=== PATIENT | male | born 1960 | race Caucasian/White ===

== ENCOUNTER 2022-07-08 19:39 | Emergency (ER) | payer OTHER, SELFPAY ==
--- NOTE | ~2022-07-08 | XR_ITS ---
EXAMINATION: XR FINGER, LEFT CLINICAL INFORMATION: Middle finger deformity COMPARISON: None TECHNIQUE: Three views of the left middle finger. FINDINGS: There is posterior dislocation of the third PIP joint. Tiny ossification along the volar aspect of the NAFISA joint near the distal aspect of the third proximal phalanx likely represents a tiny avulsion fracture component, best appreciated on the lateral view. XR/XR finger LT min 2V IMPRESSION: Posterior dislocation of the third PIP joint space with a suggestion of a tiny volar fracture fragment
--- NOTE | ~2022-07-08 | XR_ITS ---
EXAMINATION: XR HAND, LEFT CLINICAL INFORMATION: Postreduction COMPARISON: Prereduction images TECHNIQUE: PA, lateral, and oblique views of the left hand. FINDINGS: The third PIP joint has been relocated. Again there is a tiny ossification seen along the volar aspect of the PIP joint likely representing a tiny avulsion injury. No other acute bony abnormality. XR/XR hand LT min 3V IMPRESSION: Relocated third PIP joint with tiny volar avulsion fracture
[2022-07-08 20:09] VITALS: BP 139/81; PULSE 104; RESP 16; TEMP 36.2; O2SAT 99; BMI 21.5
--- NOTE | 2022-07-08 22:20 | ED_ITS ---
HPI - Extremity Problem General Chief complaint: Extremity Injury, Upper Stated complaint: Finger injury Time Seen by Provider: 07/08/22 22:16 Source: patient Mode of arrival: ambulatory Limitations: no limitations History of Present Illness HPI Narrative: 61-year-old male presents to the emergency department with complaints of left 3rd finger pain status post tripping and falling on to his left hand, patient tells me he stubbed his finger on the way down and noted that he had an evident deformity to the finger. He tells me is unable to move that finger. However he can feel it. He tells me this happened just prior to his arrival. Patient did not hit his head, lose consciousness when he fell. No other injury sustained during fall. Patient not on blood thinners. Denies numbness or tingling. Related Data Allergies Allergy/AdvReac Type Severity Reaction Status Date / Time No Known Allergies Allergy Unverified 07/01/20 15:34 [No Known Allergies*] Review of Systems Review of Systems: Constitutional : No Weight loss, No Fever, No Chills, No Fatigue, No Malaise ENT/Mouth : No sore throat, No Rhinorrhea Eyes: No Eye Pain, No Swelling, No Redness Cardiovascular : No Chest Pain, No SOB, No Dyspnea on Exertion, No Orthopnea, No Edema, No Palpitations Respiratory : No Cough, No Sputum, No Wheezing Gastrointestinal : No Nausea, No Vomiting, No Diarrhea, No Constipation, No abdominal Pain, No Hematochezia, No Melena Genitourinary : No Dysuria, No Urinary Frequency, No Hematuria, Musculoskeletal : + joint pain, No Myalgias, No Joint Swelling Skin : No Skin Lesions, No rash Neuro : No Weakness, No Numbness, No Dizziness, No Headache All other systems reviewed and are negative Yes all other systems are reviewed and are negative [facility] Past Medical History Attestation statement: The following information was validated with the patient. Source: old records reviewed and nursing notes reviewed Social History Social History Advance Directives: No Advance Directives Information Provided: No Physical Exam Vital Signs: Vital Signs: Last Vital Signs Temp 97.2 F 07/08/22 20:09 Pulse 104 H 07/08/22 20:09 Resp 16 07/08/22 20:09 BP 139/81 07/08/22 20:09 Pulse Ox 99 07/08/22 20:09 O2 Del Method 07/08/22 20:09 BMI result Body Mass Index 21.5 vss Appearance: Alert.? Oriented X3.? No acute distress.? Head: Normocephalic, atraumatic, no step-offs or deformities Eyes: Pupils equal, round and reactive to light.? ENT: Pharynx normal.? Neck: Normal inspection.? Neck supple.? CVS: Normal heart rate and rhythm.? Pulses normal.? Respiratory: No respiratory distress.? Breath sounds normal.? Abdomen: Soft and nontender.? Skin: Skin warm and dry.? Normal skin color.? Normal skin turgor.? Extremities: No lower extremity edema.? No calf ttp. 5/5 strength to bilateral upper and lower extremities deformity to L. third digit (image below) NV intact normal sensation to all fingers and capillary refill intact b/l. Neuro: Oriented X 3.? No motor deficit.? No sensory deficit. CN 2-12 intact Course Reevaluation(s) Reevaluation #1: Imaging with evident dislocation. Traction and counter traction applied to successfully place joint back in place. Patient tolerated procedure well, post procedure neurovascularly intact, patient able to wiggle finger, full range of motion. Will obtain post reduction films. Patient's finger will be placed in a splint to ensure that it remains in place. Time: 22:24 Reevaluation #2: Post reduction film with improvement. Remains neurovascularly intact. Patient tells me he does not aware splint, educated him it could pop back out. I will provide him with information for Ortho, advised to return with new or worsening symptoms. Outlined on worrisome signs and symptoms. Comfortable discharge home. Time: 22:48 MDM - Extremity (Nontraumatic) MDM Narrative Medical decision making narrative: 1023 This is a 61-year-old male presenting for evaluation of left 3rd digit pain stat us post falling and stabbing his finger on the ground. No head strike, no LOC, patient not on blood thinners. On exam evident deformity noted, images in chart. However, neurovascularly intact. Concerns for fracture dislocation. Patient did not have a head strike, therefore had imaging not required, patient not on blood thinners. [place] head score negative therefore no need for imaging. Plan at this time is to obtain imaging. Medical Records Attestation: I reviewed the patient's medical records. Lab Data Attestation: I reviewed the patient's lab results. Discharge Plan Discharge Clinical Impression: Dislocated finger, Finger fracture Patient Disposition: Home, Self-Care Instructions: Finger Fracture (ED), Finger Dislocation (ED) Additional Instructions: Take your medications as prescribed. If you were prescribed antibiotics today, it is important that you take your medication to their entirety, do not skip any doses, do not finish them early. Follow-up with your primary care provider this week. Follow up with ortho info below Return to the emergency department with new or worsening symptoms. Such as fevers, chills, chest pain, shortness of breath, nausea, vomiting, dizziness, headache, vision changes, lethargy, worsening pain, discoloration/numbness of finger. In case of emergency call 911 Keep splint on until tomorrow. You can take ibuprofen every 6 hours tylenol every 4 hours. XR/XR finger LT min 2V IMPRESSION: Posterior dislocation of the third PIP joint space with a suggestion of a tiny volar fracture fragment ? Referrals: Physician,None [Primary Care Provider] - 2 days Malka Powers MD [Physician] - 3 days Stand Alone Forms: Work/School Release
== END 2022-07-08 22:56 | disposition home or self-care (01) ==
PROVIDERS: Emergency Provider Student in an Organized Health Care Education/Training Program
DX: S62.613A Displaced fracture of proximal phalanx of left middle finger, initial encounter for closed fracture (principal); W01.198A Fall on same level from slipping, tripping and stumbling with subsequent striking against other object, initial encounter; Y93.9 Activity, unspecified; Y92.9 Unspecified place or not applicable; Y99.9 Unspecified external cause status
CPT/HCPCS: 26742; 73130; 73140; 99282; 99284

== ENCOUNTER 2023-12-04 05:48 | Inpatient (IN) | payer OTHER, SELFPAY ==
[2023-12-04] VITALS (10 sets, daily range): BP systolic 124–148; BP diastolic 65–74; PULSE 110–133; RESP 16–32; TEMP 36.6–37.4; O2SAT 84–97; BMI 19.2
--- NOTE | ~2023-12-04 | CT_ITS ---
EXAMINATION: CT ANGIOGRAM OF THE CHEST WITH AND WITHOUT CONTRAST (CT PULMONARY ANGIOGRAM FOR PE) CLINICAL INFORMATION: Reason for Exam hypoxia, tachycardia, +dimer COMPARISON: None available. TECHNIQUE: Prior to contrast administration, noncontrast localization images were obtained. Subsequently, multidetector volumetric imaging was performed from the thoracic inlet to below the diaphragms following the administration of 80 mL Omnipaque 350 intravenous contrast. No contrast reaction reported Sagittal, coronal, and MIP oblique sagittal reformatted images were obtained on the CT workstation, uploaded to PACS, and reviewed. This CT examination was performed using dose optimization techniques as appropriate, variously including the following: *Automated exposure control *Adjustment of mA and/or kV according to patient size (this includes techniques or standardized protocols for targeted exams where dose is matched to indication/reason for exam; i.e. extremities or head) *Use of iterative reconstruction technique Total exam dose-length product 200 mGy-cm FINDINGS: QUALITY OF STUDY/CONTRAST BOLUS: Satisfactory. PULMONARY ARTERIES: No pulmonary emboli. THORACIC AORTA: No aneurysm. LUNG: There is mild centrilobular emphysema. There are ill-defined patchy groundglass 4-5 mm nodular densities in in both upper lobes and both lower lobes. No large consolidation, mass seen. Mild atelectatic changes seen in both lower lobes. PLEURA: No pleural effusion or pneumothorax. MEDIASTINUM: The thyroid lobes are symmetric and normal. The central trachea and the bronchi widely patent. Heart size and the great vessels are normal caliber. No pericardial effusion seen. No abnormal size mediastinal or hilar lymph nodes. No evidence of septal bowing or right heart strain. CORONARY ARTERY CALCIFICATION: Mild coronary artery calcifications are present. CHEST WALL/AXILLA: No axillary or internal mammary lymphadenopathy. OSSEOUS STRUCTURES: No aggressive lytic or sclerotic process seen. UPPER ABDOMEN: Visualized liver, spleen, pancreas and bilateral adrenal glands are unremarkable. No reflux of contrast into the hepatic veins to suggest elevated right heart pressures. CT/CT angio chest PE protocol IMPRESSION: No evidence of PE. No evidence aortic aneurysm or dissection. Multiple ill-defined groundglass nodular densities in both upper and lower lobes. Question inflammatory or infectious etiology. Recommend follow-up chest x-ray in 7-10 days following course of antibiotics. VTE: negative
--- NOTE | ~2023-12-04 | XR_ITS ---
EXAMINATION: XR CHEST CLINICAL INFORMATION: Shortness of breath and cough. COMPARISON: None available. TECHNIQUE: Frontal view of the chest was obtained. FINDINGS: The cardiomediastinal silhouette is normal. The lung araujo are hyperinflated. There is no definitive focal consolidation or evidence for significant pleural effusions. The bony structures and soft tissues are unremarkable. XR/XR chest 1V IMPRESSION: Hyperinflated lung araujo. No definitive focal consolidation or evidence for significant pleural effusions.
--- NOTE | 2023-12-04 05:59 | ECG_ITS ---
Test Reason : SOB Blood Pressure : / mmHG Vent. Rate : 123 BPM Atrial Rate : 123 BPM P-R Int : 136 ms QRS Dur : 082 ms QT Int : 302 ms P-R-T Axes : 083 063 079 degrees QTc Int : 432 ms Sinus tachycardia Otherwise normal ECG No previous ECGs available Referred By: Generic ED Physician Electronically Signed By:JEFFERSON SORTO MD
[2023-12-04 06:32] LABS: Hematocrit 44.9 % (42.0-52.0); Hemoglobin 15.1 g/dl (14.0-18.0); Mean Corpuscular HGB Conc 33.6 g/dl (31.0-36.0); Mean Corpuscular Hemoglobin 31.5 pg (27.0-33.0); Mean Corpuscular Volume 93.7 fL (80.0-98.0); Mean Platelet Volume 8.4 fL (9.4-12.4); Platelet Count 288 X10*3/uL (160-400); Red Blood Count 4.79 X10*6/uL (4.60-5.80); Red Cell Distribution Width 12.8 % (11.0-16.0); White Blood Count 11.5 X10*3/uL (4.8-10.8)
[2023-12-04 06:41] LABS: COVID-19 Test Negative (Negative); IDNOW Serial# 152EDE1D
[2023-12-04 06:44] LABS: Alanine Aminotransferase 7 U/L (0-40); Albumin Level 3.8 g/dL (3.5-5.0); Alkaline Phosphatase 79 U/L (39-117); Anion Gap 13 (12-20); Aspartate Amino Transferase 14 U/L (5-37); Bilirubin Total 0.7 mg/dL (0.0-1.0); Blood Urea Nitrogen 6 mg/dL (9-16); Calcium 9.1 mg/dL (8.4-10.2); Carbon Dioxide 29 mmol/L (22-29); Chloride 93 mmol/L (96-108); Creatinine Clr Calc Pharmacy 84.1; Estimated Glomerular Filt Rate > 60; Glucose Random 127 mg/dL (60-115); IDNOW Serial# 08D9AD1C; Influenza A Negative (Negative); Influenza B2 Negative (Negative); Potassium 3.8 mmol/L (3.3-5.1); Sodium 131 mmol/L (135-145); Total Protein 7.3 g/dL (6.5-8.0)
[2023-12-04 06:51] LABS: Troponin-I High Sensitivity < 2.7 ng/L (<3.5-35.0)
[2023-12-04 06:52] LABS: Band Neutrophils Percent 5 % (3-5); Lymphocytes Absolute Manual 0.5 X10*3/uL (1.2-4.9); Lymphocytes Percent Manual 4 % (20-40); Monocytes Absolute Manual 1.5 X10*3/uL (0.1-1.2); Monocytes Percent Manual 13 % (2-11); Neutrophils Absolute Manual 9.5 X10*3/uL (2.0-8.3); Neutrophils Percent Manual 78 % (45-73)
[2023-12-04 06:53] LABS: RBC Morphology NORMAL
[2023-12-04 06:54] LABS: Dohle Bodies PRESENT; Platelet Estimate NORMAL (NORMAL); Platelet Morphology Comment NORMAL; Toxic Vacuolation PRESENT
--- NOTE | 2023-12-04 06:57 | ED_ITS ---
HPI - SOB/Dyspnea General Chief Complaint: Dyspnea Stated Complaint: Sob Time Seen by Provider: 12/04/23 06:56 Source: patient and RN notes reviewed Mode of arrival: ambulatory Limitations: no limitations History of Present Illness HPI Narrative: This is a 63-year-old male, with a history of asthma, presenting to the emergency department with complaints of cough x1 week. Patient reports that over the last week he has had a nonproductive cough with associated chest pain which only occurs with coughing. He has a daily smoker, smokes approximately half a pack of cigarettes per day. No fevers, chills, headaches, congestion, palpitations, abdominal pain, nausea, vomiting or diarrhea. Denies any other complaints or concerns at this time. MD elicited complaint: shortness of breath and cough Pertinent past history: asthma Timing: constant Severity: moderate Exacerbating factors: exertion Known history of: COPD Associated symptoms: cough Treatment prior to arrival: none Related Data Home oxygen amount: none Allergies Allergy/AdvReac Type Severity Reaction Status Date / Time No Known Allergies Allergy Verified 12/04/23 05:53 [No Known Allergies*] Review of Systems 2 Review of Systems: Yes all other systems are reviewed and are negative Constitutional: Constitutional: Reports as per HPI [facility] Past Medical History Attestation statement: The following information was validated with the patient. Social History Social History Smoked in Last 30 Days: Yes Advance Directives: No Advance Directives Information Provided: Yes Physical Exam 2 Vital Signs: Vital Signs: Last Vital Signs Temp 99.3 F 12/04/23 05:53 Pulse 133 H 12/04/23 08:05 Resp 22 H 12/04/23 08:05 BP 124/74 12/04/23 05:53 Pulse Ox 84 L 12/04/23 10:04 O2 Del Method Room Air 12/04/23 10:04 BMI result Body Mass Index 19.2 Const: General: cooperative, comfortable and no acute distress O rientation/consciousness: patient oriented x3 Limitations: no limitations HEENT: Head: Yes normal to inspection, Yes normocephalic and Yes atraumatic Ears: hearing grossly normal bilaterally General nose exam: Normal external nose present Face and sinus: Yes normal facial exam Mouth: Normal oral and palatal mucosa present, oropharynx normal and moist mucous membranes Throat: Yes posterior oropharynx normal Eyes: General: appearance normal, both eyes and all related structures E yelids: Yes eyelids normal Conjunctivae: conjunctivae normal Sclerae: s clerae normal Pupils: Equal, round and reactive pupils present EOM: EOMs intact bilaterally Neck: Neck: Yes normal visual inspection, Yes full ROM and Yes no lymphadenopathy Lymphatic: no lymphadenopathy noted Chest: Chest palpation & inspection: normal inspection of the chest Resp: Other: Prolonged expiratory phase wheeze noted to bilateral lung bases, diminished throughout. Dry cough noted Effort & Inspection: normal respiratory effort and able to speak in complete sentences Cardio: Rate: regular rate Rhythm: regular rhythm Heart sounds: S1 normal heart sound present and S2 normal heart sound present GI: Inspection: Yes normal to inspection Skin: General skin exam: no rashes or lesions noted Trauma: no lacerations or abrasions Wounds: no wounds Neuro: General: patient oriented x3 and moves all extremities Cranial nerves: Yes Equal, round and reactive pupils present Extrem: General: Yes normal to inspection Right upper extremity: normal to inspection Left upper extremity: normal to inspection Right lower extremity: normal to inspection Left lower extremity: normal to inspection Course Reevaluation(s) Reevaluation #1: D-dimer returns, is elevated despite age adjusted, will obtain CTA given hypoxia and tachycardia. Time: 08:04 Reevaluation #2: Patient had an episode of hypoxia, dipped down to 82% on room air, placed on 4 L nasal cannula. Chest CTA shows no evidence of PE. Patient has no leukocytosis, stable H&H, slightly hyponatremic at 131, chloride 93, BUN 6. Lactic acid returns, 2.6. Not meeting severe sepsis. Lactic acidosis likely secondary to multiple nebulizer treatments as well as IV Solu-Medrol. This is likely COPD exacerbation, infection is not suspected. CTA and CT chest not revealing any pneumonia. Given hypoxia and COPD exacerbation, patient would benefit from hospital admission. Time: 09:54 Reevaluation #3: Patient dipped down to 87% on room air. Transfer of care initiated Time: 10:47 Medications Administered Discontinued Medications Generic Name Dose Route Start Last Admin Trade Name Freq PRN Reason Stop Dose Admin Albuterol Sulfate 5 mg/ 0 mg 12/04/23 07:27 12/04/23 07:33 Albuterol/Ipratropium 3 ml INHALE 12/04/23 07:28 1 each ONCE ONE Administration Sodium Chloride 1,000 mls @ 999 mls/hr 12/04/23 08:00 12/04/23 09:37 Ns IV 12/04/23 09:00 Infused .Q1H1M ONE Infusion Iohexol 100 ml 12/04/23 08:52 12/04/23 08:53 Iohexol 350 Mg/Ml 100 Ml Infus..Btl IV 12/04/23 08:53 65 ml ONCE ONE Administration Methylprednisolone Sodium Succinate 125 mg 12/04/23 07:17 12/04/23 07:57 Methylprednisolone Sod Succ 125 Mg/2 Ml Vial IVPUSH 12/04/23 07:18 125 mg ONCE ONE Administration Medical Decision Making Medical Decision Making [facility] Narrative: This is a 63-year-old male, with a history of asthma, presenting to the emergency department for evaluation of dry cough x1 week. On arrival, patient tachycardic at 132 beats per minute, oxygen saturation 93% on room air. He has had known sick contacts, lungs with prolonged expiratory phase wheeze noted. He is a smoker. Differential diagnoses include COPD exacerbation, asthma exacerbation, viral syndrome, ACS, PE. Plan: Labs, EKG, chest x-ray, viral swabs Differential Diagnosis Differential Diagnoses: The differential diagnosis associated with the presentation includes See above Admission/Observation Consideration of admission/observation: Escalation of care including admission/observation considered Consult Healthcare Provider Management of the patient was discussed with: Hospitalist Lab Data [facility] Lab Attestation statement: I reviewed the patient's lab results. Slight leukocytosis at 11.5, sodium 131, chloride 93, BUN 6, random glucose 127, lactic acid 2.6, see course comment about this. Negative COVID and flu. 12/04/23 06:22 12/04/23 06:22 Labs: Lab Results 12/04/23 12/04/23 12/04/23 Range/Units 06:22 07:28 09:29 WBC 11.5 H (4.8-10.8) X10*3/uL RBC 4.79 (4.60-5.80) X10*6/uL Hgb 15.1 (14.0-18.0) g/dl Hct 44.9 (42.0-52.0) % MCV 93.7 (80.0-98.0) fL MCH 31.5 (27.0-33.0) pg MCHC 33.6 (31.0-36.0) g/dl RDW 12.8 (11.0-16.0) % Plt Count 288 (160-400) X10*3/uL MPV 8.4 L (9.4-12.4) fL Immature Gran % (Auto) Cancelled Neut % (Auto) Cancelled Lymph % (Auto) Cancelled Emery % (Auto) Cancelled Eos % (Auto) Cancelled Baso % (Auto) Cancelled Lymph # (Auto) Cancelled Emery # (Auto) Cancelled Eos # (Auto) Cancelled Baso # (Auto) Cancelled Abs Immat Gran (auto) Cancelled Absolute Neuts (auto) Cancelled Absolute Nucleated RBC 0.000 (0.0-0.012) X10*3/uL Nucleated RBC % (auto) 0.0 (0.0-0.2) /100WBC Neutrophils % (Manual) 78 H (45-73) % Band Neutrophils % 5 (3-5) % Lymphocytes % (Manual) 4 L (20-40) % Monocytes % (Manual) 13 H (2-11) % Abs Neuts (Manual) 9.5 H (2.0-8.3) X10*3/uL Lymphocytes # (Manual) 0.5 L (1.2-4.9) X10*3/uL Monocytes # (Manual) 1.5 H (0.1-1.2) X10*3/uL Toxic Vacuolation PRESENT Dohle Bodies PRESENT Platelet Estimate NORMAL (NORMAL) Plt Morphology Comment NORMAL RBC Morphology NORMAL D-Dimer High Sensitivty 370 NG/ML Sodium 131 L (135-145) mmol/L Potassium 3.8 (3.3-5.1) mmol/L Chloride 93 L (96-108) mmol/L Carbon Dioxide 29 (22-29) mmol/L Anion Gap 13 (12-20) BUN 6 L (9-16) mg/dL Creatinine 0.74 (0.5-1.4) mg/dL Estim Creat Clear Calc 84.1 Estimated GFR > 60 Random Glucose 127 H (60-115) mg/dL Lactic Acid 2.6 H* (0.5-2.0) mmol/L Calcium 9.1 (8.4-10.2) mg/dL Total Bilirubin 0.7 (0.0-1.0) mg/dL AST 14 (5-37) U/L ALT 7 (0-40) U/L Alkaline Phosphatase 79 (39-117) U/L Troponin I High Sens < 2.7 (<3.5-35.0) ng/L Total Protein 7.3 (6.5-8.0) g/dL Albumin 3.8 (3.5-5.0) g/dL COVID-19 (PINA) Negative (Negative) COVID-19 Clin Com See Note Influenza Type A (DAPHNE) Negative (Negative) Influenza Type B (DAPHNE) Negative (Negative) Influenza A & B Note See Note Independent Interpretation I performed an independent interpretation of an: EKG Interpretation: Sinus tachycardia at a ventricular rate of 123 beats per minute NV interval 136, QTC 432, no ST elevation or depression. Radiology Impression Discussion of test interpretation with radiology: I have reviewed the radiologist's reading. Radiologist Impression: EXAMINATION: XR CHEST CLINICAL INFORMATION: Shortness of breath and cough. COMPARISON: None available. TECHNIQUE: Frontal view of the chest was obtained. FINDINGS: The cardiomediastinal silhouette is normal. The lung araujo are hyperinflated. There is no definitive focal consolidation or evidence for significant pleural effusions. The bony structures and soft tissues are unremarkable. XR/XR chest 1V IMPRESSION: Hyperinflated lung araujo. No definitive focal consolidation or evidence for significant pleural effusions. Dictated By: Veto Dugan EXAMINATION: CT ANGIOGRAM OF THE CHEST WITH AND WITHOUT CONTRAST (CT PULMONARY ANGIOGRAM FOR PE) CLINICAL INFORMATION: Reason for Exam hypoxia, tachycardia, +dimer COMPARISON: None available. TECHNIQUE: Prior to contrast administration, noncontrast localization images were obtained. Subsequently, multidetector volumetric imaging was performed from the thoracic inlet to below the diaphragms following the administration of 80 mL Omnipaque 350 intravenous contrast. No contrast reaction reported Sagittal, coronal, and MIP oblique sagittal reformatted images were obtained on the CT workstation, uploaded to PACS, and reviewed. This CT examination was performed using dose optimization techniques as appropriate, variously including the following: *Automated exposure control *Adjustment of mA and/or kV according to patient size (this includes techniques or standardized protocols for targeted exams where dose is matched to indication/reason for exam; i.e. extremities or head) *Use of iterative reconstruction technique Total exam dose-length product 200 mGy-cm FINDINGS: QUALITY OF STUDY/CONTRAST BOLUS: Satisfactory. PULMONARY ARTERIES: No pulmonary emboli. THORACIC AORTA: No aneurysm. LUNG: There is mild centrilobular emphysema. There are ill-defined patchy groundglass 4-5 mm nodular densities in in both upper lobes and both lower lobes. No large consolidation, mass seen. Mild atelectatic changes seen in both lower lobes. PLEURA: No pleural effusion or pneumothorax. MEDIASTINUM: The thyroid lobes are symmetric and normal. The central trachea and the bronchi widely patent. Heart size and the great vessels are normal caliber. No pericardial effusion seen. No abnormal size mediastinal or hilar lymph nodes. No evidence of septal bowing or right heart strain. CORONARY ARTERY CALCIFICATION: Mild coronary artery calcifications are present. CHEST WALL/AXILLA: No axillary or internal mammary lymphadenopathy. OSSEOUS STRUCTURES: No aggressive lytic or sclerotic process seen. UPPER ABDOMEN: Visualized liver, spleen, pancreas and bilateral adrenal glands are unremarkable. No reflux of contrast into the hepatic veins to suggest elevated right heart pressures. CT/CT angio chest PE protocol IMPRESSION: No evidence of PE. No evidence aortic aneurysm or dissection. Multiple ill-defined groundglass nodular densities in both upper and lower lobes. Question inflammatory or infectious etiology. Recommend follow-up chest x-ray in 7-10 days following course of antibiotics. VTE: negative Dictated By: Haroon Pike MD Signed By: <Electronically signed b Chronic Conditions Patient?s care impacted by: Other (COPD) Critical Care Time Critical Care Time Critical Care Time: Yes Total Critical Care Time: 45 Attestation: I have personally provided critical care time exclusive of time spent on separately billable procedures. Time includes review of lab data, radiology results, discussion with consultants, and monitoring for potential decompensation. Intervention performed as documented. Discharge Plan Discharge Clinical Impression: COPD exacerbation Patient Disposition: Admitted As Inpatient
[2023-12-04] MEDS: Albuterol Sulfate 5 MG, Albuterol/Iprat 2.5/0.5MG 3 ML 3 ML INHALE (07:33)
[2023-12-04 07:42] LABS: D Dimer High Sensitivity 370 NG/ML
[2023-12-04] MEDS: methylPREDNISolone Sod Succ 125 MG/2 ML VIAL IVPUSH (07:57)
[2023-12-04] MEDS: 0.9 % Sodium Chloride 1,000 ML 999 ML IV ×2 (08:04→16:13)
[2023-12-04] MEDS: iohexoL 350 MG/ML 100 ML INFUS..BTL IV (08:53)
[2023-12-04 09:53] LABS: Lactic Acid 2.6 mmol/L (0.5-2.0)
--- NOTE | 2023-12-04 11:15 | PHA.MEDREC ---
Pharmacy Consult ? Medication Reconciliation Pharmacy has completed the medication reconciliation. Spoke with patient in the ED. Patient is not on any OTC or RX meds
[2023-12-04 11:36] LABS: Reflex Lactate? Lactic Acid Added
--- NOTE | 2023-12-04 11:44 | PM.IMHP ---
History of Present Illness Date of Service: 12/04/23 Attending physician on admission: Rajat Foreman Chief Complaint: sob, cough 63-year-old male with history of COPD who is a current 1/2 PPD cigarette smoker (with 50 year history) presents to the ED earlier today for evaluation of productive could with clear-yellow sputum and dyspnea ongoing for 3 weeks. States he has a smoker's cough at baseline but this is different. Reports dyspnea both with exertion and at rest. There is pleuritic chest pain. Reports coworkers have been sick but no sick contacts at home. No fevers, chills, sore throat, congestion, abd pain, n/v/d urinary symptoms, lightheadedness, palpitations, chest pressure. Has been cutting back on cigarettes for several months to 1/2 ppd from 1ppd. Denies any night sweats or unintentional weight loss. Reports his tachycardia is chronic. On arrival, pt tachycardic to 130, VS otherwise stable, afebrile. Mild leukocytosis 11.5. Renal fx normal, mild hyponatremia 131 and chloride 93, lytes otherwise WNL. lactic acid 2.6. Trop below detectable limits. Negative COVID and flu. DDimer 330. Chest CTA negative for PE, but shows multiple ill-defined nodular densities in both upper and lower lobes. In ED, given 125mg IV solumderol, duoneb, IV NS. Review of Systems Review of Systems: General: No fevers, malaise, unintentional weight loss HEENT: No blurred vision, diplopia. No sore throat, nasal congestion, rhinorrhea, sinus pain, ear pain Cardiovascular: +pleuritic chest pain. No palpitations, or leg edema Respiratory: +shortness of breath, +wheezing, +cough GI: +anorexia. No abdominal pain, nausea, vomiting, diarrhea, constipation, melena, hematochezia : No dysuria, hematuria, increased urinary frequency, decreased urinary output MSK: No myalgia, back pain Neuro: No headaches, weakness, paresthesias Skin: No rashes or lesions [facility] Medical History Cigarette smoker COPD (chronic obstructive pulmonary disease) Social History Smoked in Last 30 Days: Yes Advance Directives: No Advance Directives Information Provided: Yes Meds Allergies Allergy/AdvReac Type Severity Reaction Status Date / Time No Known Allergies Allergy Verified 12/04/23 05:53 [No Known Allergies*] Active Medications: Current Medications Acetaminophen (Acetaminophen 325 Mg Tablet) 650 mg PO Q6H PRN PRN Reason: Pain, Mild (Pain Scale 1-3) Albuterol Sulfate (Albuterol Sulfate (0.083%) 2.5 Mg/3 Ml Vial.Neb) 2.5 mg INHALE Q2H PRN PRN Reason: Shortness of Breath/Wheezing Albuterol/Ipratropium (Albuterol/Iprat 2.5/0.5mg 3 Ml Ampul.Neb) 3 ml INHALE RQ4H WHILE AWAKE MARIJA Enoxaparin Sodium (Enoxaparin Sodium 40 Mg/0.4 Ml Syringe) 40 mg SUBCUT Q24H [facility] Ceftriaxone Sodium 1 gm/ (Sodium Chloride) 50 mls @ 100 mls/hr IV Q24H [facility] Doxycycline Hyclate 100 mg/ (Sodium Chloride) 250 mls @ 166.67 mls/hr IV Q12H [facility] Methylprednisolone Sodium Succinate (Methylprednisolone Sod Succ 40 Mg/Ml Vial) 40 mg IVPUSH Q12H [facility] Ondansetron HCl (Ondansetron Hcl 4 Mg/2 Ml Vial) 4 mg IVPUSH Q8H PRN PRN Reason: Nausea and Vomiting Senna (Sennosides 8.6 Mg Tablet) 17.2 mg PO BEDTIME PRN PRN Reason: Constipation Sodium Chloride (0.9 % Sodium Chloride Flush 3 Ml Syringe) 3 ml IVFLUSH QSHIFT [facility] Home Medications Medication Instructions Recorded Confirmed Last Taken Type No Known Home Meds 12/04/23 12/04/23 Unknown History Physical Exam Vital Signs and Narrative: Vital Signs: Last Vital Signs Temp 99.3 F 12/04/23 05:53 Pulse 133 H 12/04/23 08:05 Resp 22 H 12/04/23 08:05 BP 124/74 12/04/23 05:53 Pulse Ox 84 L 12/04/23 10:04 O2 Del Method Room Air 12/04/23 10:04 BMI result Body Mass Index 19.2 Constitutional - Awake and Alert, No apparent distress Eyes - PERRLA, EOMI Cardiovascular - S1S2, RRR, No edema Respiratory - Normal lung expansion, Normal respiratory effort, No respiratory distress on 2L supplemental O2, diffuse expiratory wheezing Gastrointestinal - NT / ND; +BS; No rebound or guarding Extremities - no calf tenderness bilaterally, no swelling Skin - Warm/Dry Neurological - Alert & oriented x3 Psychological - Appropriate affect Results Labs 12/04/23 06:22 12/04/23 06:22 Labs: Laboratory Results - last 24 hr 12/04/23 12/04/23 12/04/23 06:22 07:28 09:29 MCV 93.7 MCH 31.5 MCHC 33.6 RDW 12.8 Plt Count 288 MPV 8.4 L Immature Gran % (Auto) Cancelled Neut % (Auto) Cancelled Lymph % (Auto) Cancelled [place] % (Auto) Cancelled Eos % (Auto) Cancelled Baso % (Auto) Cancelled Lymph # (Auto) Cancelled [place] # (Auto) Cancelled Eos # (Auto) Cancelled Baso # (Auto) Cancelled Abs Immat Gran (auto) Cancelled Absolute Neuts (auto) Cancelled Absolute Nucleated RBC 0.000 Nucleated RBC % (auto) 0.0 Neutrophils % (Manual) 78 H Band Neutrophils % 5 Lymphocytes % (Manual) 4 L Monocytes % (Manual) 13 H Abs Neuts (Manual) 9.5 H Lymphocytes # (Manual) 0.5 L Monocytes # (Manual) 1.5 H Toxic Vacuolation PRESENT Dohle Bodies PRESENT Platelet Estimate NORMAL Plt Morphology Comment NORMAL RBC Morphology NORMAL D-Dimer High Sensitivty 370 Anion Gap 13 Estim Creat Clear Calc 84.1 Estimated GFR > 60 Random Glucose 127 H Lactic Acid 2.6 H* Calcium 9.1 Total Bilirubin 0.7 AST 14 ALT 7 Alkaline Phosphatase 79 Troponin I High Sens < 2.7 Total Protein 7.3 Albumin 3.8 COVID-19 (PINA) Negative COVID-19 Clin Com See Note Influenza Type A (DAPHNE) Negative Influenza Type B (DAPHNE) Negative Influenza A & B Note See Note Imaging Radiologist's Impressions: Impressions Chest X-Ray 12/04/23 06:08 IMPRESSION: Hyperinflated lung araujo. No definitive focal consolidation or evidence for significant pleural effusions. Chest CTA 12/04/23 09:01 IMPRESSION: No evidence of PE. No evidence aortic aneurysm or dissection. Multiple ill-defined groundglass nodular densities in both upper and lower lobes. Question inflammatory or infectious etiology. Recommend follow-up chest x-ray in 7-10 days following course of antibiotics. VTE: negative Assessment and Plan (1) COPD exacerbation: Status: Acute Plan 63-year-old male with history of COPD who is a current 1/2 PPD cigarette smoker (with 50 year history) admitted for further management of COPD exaceration and bilateral pneumonia with acute hypoxemic respiratory failure. #Bilateral pneumonia with COPD exacerbation and acute hypoxemic respiratory failure -CTA chest negative for PE but shows multiple ill defined groundglass opacities concerning for infectious vs inflammatory etiology. recommend follow up CT 7-10 days after abx -NO sepsis. Pt not toxic appearing. Tachypnea due to exacerbation. Reports chronic tachycardia -IV ceftriaxone and doxycycline (initiated 12/04) -duonebs q4h while awake, albuterol prn -40mg IV methylprednisolone BID -symptomatic management -continue supplemental O2 to maintain oximetry >92%, wean as tolerated -sputum culture, strep pneumo ag, legionella ag -needs oupt follow up CT in 7-10 days #Sinus tachycardia -likely multifactorial due to anxiety, albuterol use, possible underlying CHF (euvolemic on exam- not exacerbated) -Monitor, outpt follow up #Lactic acidosis -likely due to hypoxia. Not severe sepsis #Cigarette smoker -50 pack year history -cessation counseling, nicotine patch for NRT -outpt follow up for lung cancer screenings DVT prophylaxis- lovenox DNR- noninvasive and invasive ventilation ok Pt requires inpt stay at least 2 midnights due to COPD exacerbation and pneumonia resulting in acute hypoxemic respiratory failure which will require IV steroids, IV abx, close monitoring, and gradual weaning of supplemental O2 Quality Stroke Does the patient have a stroke diagnosis?: No VTE Prior VTE?: No VTE Risk Level:: Medical - moderate - high VTE Device Contraindication: Treatment Not Indicated VTE Drug Contraindication: N/A - Med Ordered
[2023-12-04] MEDS: Albuterol/Iprat 2.5/0.5MG 3 ML AMPUL.NEB INHALE ×3 (11:51→19:20)
[2023-12-04 12:23] LABS: ~Lactic Acid-LAB USE ONLY 2.1 mmol/L (0.5-2.0)
[2023-12-04] MEDS: cefTRIAXone sodium 1 GM in 0.9 % Sodium Chloride 50 ML IV (12:59)
[2023-12-04] MEDS: guaiFEN/Codeine SF 200/20/10ML 10 ML LIQUID 5 ML PO ×2 (13:02→20:13)
[2023-12-04] MEDS: Doxycycline Hyclate 100 MG in 0.9 % Sodium Chloride 250 ML 166.67 MG IV (13:45)
[2023-12-04 14:02] LABS: Reflex Lactate? 2 Y
[2023-12-04 14:42] LABS: ~Lactic Acid-LAB USE ONLY 3.7 mmol/L (0.5-2.0)
--- NOTE | 2023-12-04 15:29 | PC.NURSE ---
Pt transfered to overflow ED unit, he is a/ox4, steady on his feet. Pt oriented to unit at this time, all needs met, call carrillo within reach, resp at bedside for scheduled neb
[2023-12-04 16:02] LABS: Adenovirus PCR Not Detected (Not Detect.); Bordetella parapertussis PCR Not Detected (Not Detect.); Bordetella pertussis PCR Not Detected (Not Detect.); Chlamydia pneumoniae PCR Not Detected (Not Detect.); Coronavirus 229E PCR Not Detected (Not Detect.); Coronavirus HKU1 PCR Not Detected (Not Detect.); Coronavirus NL63 PCR Not Detected (Not Detect.); Coronavirus OC43 PCR Detected (Not Detect.); Human metapneumovirus PCR Not Detected (Not Detect.); Influenza A PCR Not Detected (Not Detect.); Influenza B PCR Not Detected (Not Detect.); Mycoplasma pneumoniae PCR Not Detected (Not Detect.); Parainfluenza 1 PCR Not Detected (Not Detect.); Parainfluenza 2 PCR Not Detected (Not Detect.); Parainfluenza 3 PCR Not Detected (Not Detect.); Parainfluenza 4 PCR Not Detected (Not Detect.); RSV PCR Not Detected (Not Detect.); Rhino/Enterovirus PCR Not Detected (Not Detect.)
[2023-12-04 16:17] LABS: SARS-CoV-2 PCR Not Detected (Not Detect.)
[2023-12-04] MEDS: methylPREDNISolone Sod Succ 40 MG/ML VIAL IVPUSH (20:13)
--- NOTE | 2023-12-04 23:35 | PC.NURSE ---
Assumed care for pt. Pt is currently sleeping at the bedside. No apparent distress noted. Breaths are even regular and unlabored, on 2L NC. Pending bed assignment. Monitoring is ongoing.
[2023-12-05] VITALS (7 sets, daily range): BP systolic 135–144; BP diastolic 69–82; PULSE 77–125; RESP 18–20; TEMP 36.8–36.9; O2SAT 90–98; BMI 19.3
[2023-12-05] MEDS: Doxycycline Hyclate 100 MG in 0.9 % Sodium Chloride 250 ML 166.67 MG IV ×3 (00:13→22:55)
[2023-12-05 06:32] LABS: MANUAL DIFF FLAG NO
[2023-12-05 06:54] LABS: Anion Gap 13 (12-20); Basophils Percent Auto 0.2 % (0-2); Blood Urea Nitrogen 6 mg/dL (9-16); Calcium 8.7 mg/dL (8.4-10.2); Carbon Dioxide 27 mmol/L (22-29); Chloride 102 mmol/L (96-108); Eosinophils Percent Auto 0.1 % (0-4); Estimated Glomerular Filt Rate > 60; Glucose Random 137 mg/dL (60-115); Hematocrit 38.4 % (42.0-52.0); Hemoglobin 12.9 g/dl (14.0-18.0); Imm Gran Pct Auto 0.8 % (0.0-0.4); Lymphocytes Absolute Auto 0.6 X10*3/uL (1.2-4.9); Mean Corpuscular HGB Conc 33.6 g/dl (31.0-36.0); Mean Corpuscular Hemoglobin 31.7 pg (27.0-33.0); Mean Corpuscular Volume 94.3 fL (80.0-98.0); Mean Platelet Volume 9.8 fL (9.4-12.4); Monocytes Absolute Auto 0.7 X10*3/uL (0.1-1.2); Monocytes Percent Auto 5.7 % (2-11); Neutrophils Absolute Auto 10.5 x10*3/uL (2.0-8.3); Neutrophils Percent Auto 88.2 % (45-73); Platelet Count 218 X10*3/uL (160-400); Potassium 3.9 mmol/L (3.3-5.1); Red Blood Count 4.07 X10*6/uL (4.60-5.80); Red Cell Distribution Width 13.2 % (11.0-16.0); Sodium 138 mmol/L (135-145); White Blood Count 11.9 X10*3/uL (4.8-10.8)
[2023-12-05] MEDS: Albuterol/Iprat 2.5/0.5MG 3 ML AMPUL.NEB INHALE ×4 (07:29→18:42)
[2023-12-05] MEDS: Nicotine 14 MG PATCH.TD24 TRANSDERMA (08:01)
[2023-12-05] MEDS: methylPREDNISolone Sod Succ 40 MG/ML VIAL IVPUSH ×2 (08:01→20:53)
[2023-12-05] MEDS: guaiFEN/Codeine SF 200/20/10ML 10 ML LIQUID 5 ML PO ×4 (08:01→21:51)
[2023-12-05] MEDS: 0.9 % Sodium Chloride Flush 3 ML SYRINGE IVFLUSH ×4 (08:02→21:52)
[2023-12-05] MEDS: cefTRIAXone sodium 1 GM in 0.9 % Sodium Chloride 50 ML IV (10:27)
[2023-12-05] MEDS: LORazepam 0.5 MG TABLET PO (10:28)
[2023-12-05] MEDS: Enoxaparin Sodium 40 MG/0.4 ML SYRINGE SUBCUT (11:22)
--- NOTE | 2023-12-05 13:38 | PC.NURSE ---
report recieved from overnight RN, director mobile media solutions per DEC. pt request klonopin, admin at 0816. Pt request klonopin again at 1330, education given about the timing of this medication with little effect, pt becoming increased agitation stating this doesn't make any sense . Reached out to provider to see if medication can be given early, provider declined and pt informed, more education provided, pt still agitated waving TW away from him. PRN order for atarax offered to pt for anxiety, pt declined. safety precautions remain in place, call carrillo within reach, pt ambulates independently with a steady gait. Respirations even and unlabored.
--- NOTE | 2023-12-05 14:38 | PC.NURSE ---
report recieved from overnight RN, biomedical equipment specialist per DEC. Pt A+Ox4, on supplemental oxygen, VSS, skin intact, offering no complaints. Pt request to shave, assisted to bathroom and monitored while independently shaving. pt c/o throbbing at IV site during infusion, infusion paused and new site obtained, #20 to L hand, pt tolerated well. Old IV site discontinued, verbal reassurance given of relief. no objective findings at old IV site. Awaiting bed placement, pt updated on plan of care. Safety precautions remain in place, encouraged to call for assistance.
--- NOTE | 2023-12-05 16:09 | HO.PM.IMPN ---
Subjective Subjective Date of Service: 12/05/23 Interval History: Bilateral pneumonia with COPD exacerbation and acute hypoxemic respiratory failure Review of Systems sob ,cough somewhat imporving no fevers Physical Exam Vital Signs: Vital Signs: Last Vital Signs Temp 98.2 F 12/05/23 08:00 Pulse 115 H 12/05/23 15:31 Resp 18 12/05/23 15:31 BP 144/69 H 12/05/23 08:00 Pulse Ox 90 L 12/05/23 08:00 O2 Del Method Nasal Cannula 12/05/23 08:00 O2 Flow Rate 2 12/05/23 08:00 BMI result Body Mass Index 19.2 Appearance: Alert.? Oriented X3.sob? cvs: rrr, [id number] , no murmur res: air entry diminshed ,has b/l exp wheezing abd: no rebound or guarding ,nt, bs present. ext pulses present , no cyanosis. neuro: axo3 , nonfocal. Objective Data Active Medications Acetaminophen (Acetaminophen 325 Mg Tablet) 650 mg PO Q6H PRN PRN Reason: Pain, Mild (Pain Scale 1-3) Albuterol Sulfate (Albuterol Sulfate (0.083%) 2.5 Mg/3 Ml Vial.Neb) 2.5 mg INHALE Q2H PRN PRN Reason: Shortness of Breath/Wheezing Albuterol/Ipratropium (Albuterol/Iprat 2.5/0.5mg 3 Ml Ampul.Neb) 3 ml INHALE RQ4H WHILE AWAKE [facility] Last Admin: 12/05/23 15:31 Dose: 3 ml Documented By: KRISTIE Enoxaparin Sodium (Enoxaparin Sodium 40 Mg/0.4 Ml Syringe) 40 mg SUBCUT Q24H [facility] Last Admin: 12/05/23 11:22 Dose: 40 mg Documented By: FRANCESCO Guaifenesin/Codeine Phosphate (Guaifen/Codeine Sf 200/20/10ml 10 Ml Liquid) 5 ml PO Q4H [facility] Last Admin: 12/05/23 15:14 Dose: 5 ml Documented By: FRANCESCO Ceftriaxone Sodium 1 gm/ (Sodium Chloride) 50 mls @ 100 mls/hr IV Q24H [facility] Last Infusion: 12/05/23 10:58 Dose: Infused Documented By: FRANCESCO Doxycycline Hyclate 100 mg/ (Sodium Chloride) 250 mls @ 166.67 mls/hr IV Q12H [facility] Last Infusion: 12/05/23 13:19 Dose: Infused Documented By: FRANCESCO Methylprednisolone Sodium Succinate (Methylprednisolone Sod Succ 40 Mg/Ml Vial) 40 mg IVPUSH Q12H [facility] Last Admin: 12/05/23 08:01 Dose: 40 mg Documented By: FRANCESCO Nicotine (Nicotine 14 Mg Patch.Td24) 14 mg TRANSDERMA DAILY [facility] Last Admin: 12/05/23 08:01 Dose: 14 mg Documented By: FRANCESCO Ondansetron HCl (Ondansetron Hcl 4 Mg/2 Ml Vial) 4 mg IVPUSH Q8H PRN PRN Reason: Nausea and Vomiting Senna (Sennosides 8.6 Mg Tablet) 17.2 mg PO BEDTIME PRN PRN Reason: Constipation Sodium Chloride (0.9 % Sodium Chloride Flush 3 Ml Syringe) 3 ml IVFLUSH QSHIFT [facility] Last Admin: 12/05/23 15:15 Dose: 3 ml Documented By: FRANCESCO Labs 12/05/23 06:13 12/05/23 06:13 Labs: Laboratory Results - last 24 hr 12/04/23 12/05/23 13:56 06:13 MCV 94.3 MCH 31.7 MCHC 33.6 RDW 13.2 Plt Count 218 MPV 9.8 Immature Gran % (Auto) 0.8 H Neut % (Auto) 88.2 H Lymph % (Auto) 5.0 L [place] % (Auto) 5.7 Eos % (Auto) 0.1 Baso % (Auto) 0.2 Lymph # (Auto) 0.6 L [place] # (Auto) 0.7 Eos # (Auto) 0.0 Baso # (Auto) 0.0 Abs Immat Gran (auto) 0.10 H Absolute Neuts (auto) 10.5 H Absolute Nucleated RBC 0.000 Nucleated RBC % (auto) 0.0 Anion Gap 13 Estim Creat Clear Calc 102.0 Estimated GFR > 60 Random Glucose 137 H Calcium 8.7 Respiratory Panel Louis See Note Adenovirus (Rapid PCR) Not Detected B.pert (TEM-PCR) Not Detected B.parapertussis DNA PCR Not Detected C. pneumoniae DNA (PCR) Not Detected Coronavirus OC43 (PCR) Detected A Coronavirus HKU1 (PCR) Not Detected Coronavirus 229E (PCR) Not Detected Coronavirus NL63 (PCR) Not Detected Human Metapneumovir PCR Not Detected Influenza A (RT-PCR) Not Detected Influenza B (RT-PCR) Not Detected M. pneumoniae (PCR) Not Detected Parainfluenza 1 (PCR) Not Detected Parainfluenza 2 (PCR) Not Detected Parainfluenza 3 (PCR) Not Detected Parainfluenza 4 (PCR) Not Detected RSV (PCR) Not Detected Entero/Rhino (PCR) Not Detected SARS-CoV-2 RNA (RT-PCR) Not Detected Microbiology Microbiology Results: Microbiology 12/04/23 09:38 Blood Culture - Preliminary Blood - Venous No growth after 24 hours. 12/04/23 09:29 Blood Culture - Preliminary Blood - Venous No growth after 24 hours. 12/04/23 14:12 Gram Stain - Final Sputum - Expectorated Sputum Culture - Preliminary Haemophilus species Assessment and Plan (1) COPD exacerbation: Status: Acute (2) Pneumonia: Status: Acute Plan 63-year-old male with history of COPD who is a current 1/2 PPD cigarette smoker (with 50 year history) admitted for further management of COPD exaceration and bilateral pneumonia with acute hypoxemic respiratory failure. Bilateral pneumonia with COPD exacerbation and acute hypoxemic respiratory failure CTA chest negative for PE but shows multiple ill defined groundglass opacities concerning for infectious vs inflammatory etiology. recommend follow up CT 7-10 days after abx Tachypnea due to exacerbation. Reports chronic tachycardia NO sepsis. res panel positice for carreon OC 43 positive sputum culture, strep pneumo ag, legionella ag plan: continue IV ceftriaxone and doxycycline (initiated 12/04),duonebs q4h while awake, albuterol prn,40mg IV methylprednisolone BID, symptomatic management,supplemental O2 to maintain oximetry >92%, wean as tolerated needs oupt follow up CT 1-2 weeks after antibiotics treatments. Sinus tachycardia-likely multifactorial due to anxiety, albuterol use, possible underlying CHF (euvolemic on exam- not exacerbated) Monitor, outpt follow up ,added ativan. Lactic acidosis-likely due to hypoxia. Not severe sepsis. no further trending unless clinical deterioration. Cigarette smoker-50 pack year history cessation counseling, nicotine patch for NRT outpt follow up for lung cancer screenings DVT prophylaxis- lovenox DNR- noninvasive and invasive ventilation ok ongoing hospitlisation needfor 48-72 hrs for acute COPD exacerbation and pneumonia resulting in acute hypoxemic respiratory failure which will require IV steroids, IV abx, close monitoring, and gradual weaning of supplemental O2 Quality Stroke Does the patient have a stroke diagnosis?: No VTE Prior VTE?: No VTE Risk Level:: Medical - moderate - high VTE Device Contraindication: Treatment Not Indicated VTE Drug Contraindication: N/A - Med Ordered
--- NOTE | 2023-12-05 16:50 | MHC.EDTECH ---
Brought patient a pitcher of ice water and esme natali.
--- NOTE | 2023-12-05 20:38 | PC.NURSE ---
Called report to JONATHAN Joe assuming care of patient on IMC at this time.
[2023-12-06] VITALS (7 sets, daily range): BP systolic 127–159; BP diastolic 74–91; PULSE 82–123; RESP 16–20; TEMP 36.1–36.8; O2SAT 94–97; BMI 19.3
[2023-12-06] MEDS: guaiFEN/Codeine SF 200/20/10ML 10 ML LIQUID 5 ML PO ×6 (00:27→22:10)
--- NOTE | 2023-12-06 07:00 | CA_ITS ---
Transthoracic Echocardiogram Patient (Last, First, Middle): Sam Cruz, Gender: Male Date of : 1960 Age: 63 Procedure Date: 12/06/2023 Procedure Type: Transthoracic Echocardiogram [place] [facility] [place]: 175.26 cm Weight: 58.97 kg BSA: 1.72 m2 Heart Rate: bpm BP: 159 / 91 mmHg Ticket Worker: HAROON Referring MD: Rajat Foreman MD Ornamental Machine Operator: Corbin Nieto MD Symptoms: persistent tachycardia/sob Study Quality: Fair, contrast ECG Rhythm: Sinus tachycardia Conclusions: - Essentially normal study Findings Left Ventricle Normal left ventricular size, thickness, and systolic function. The visually estimated ejection fraction is between 55-60%. Spectral Doppler is indicative of a normal filling pattern. Right Ventricle Normal right ventricular cavity size and systolic function. Atria Both atria are normal in size. Interatrial shunt cannot be excluded. Aortic Valve Normal aortic valve structure and function. There is no aortic valve stenosis. There is no aortic valve regurgitation. Mitral Valve Normal mitral valve structure and function. There is trace mitral valve regurgitation. There is no mitral valve stenosis. Pulmonic Valve The pulmonic valve is likely normal. Tricuspid Valve Normal tricuspid valve structure. There is trace tricuspid valve regurgitation. The right ventricular systolic pressure is normal. The right ventricular systolic pressure is 22 mmHg. Normal right atrial pressure. There is no evidence of pulmonary hypertension. Great Vessels All visible segments of the aorta are normal in size. The pulmonary artery was not well visualized. There is no dilatation of the ascending aorta measuring 2.90 cm. Venous The inferior vena cava is mildly dilated and collapses greater than 50% with inspiration. Pericardium/Pleural The pericardium was not well visualized. Prior Study Comparison No prior study available for comparison. Measurements 2D Linear Measurements IVSd: 0.69 0.6-0.9/0.6-1.0 cm LVIDd: 4.68 3.9-5.3/4.2-5.9 cm LVIDd Index: 2.72 2.4-3.2/2.2-3.1 cm/m2 LVIDs: 3.71 2.0-3.6 cm LVPWd: 0.79 0.7-1.1 cm LA Diam: 3.10 2.7-3.8/3.0-4.0 cm LAIDs Index: 1.80 1.5-2.3 cm/m2 LV Mass: 136.61 67-162/88-224 g LV Mass Index: 79.42 43-95/49-115 g/m2 LVOT Diam: 1.90 3.0+(-)1.3 cm 2D Systolic Function EF 4C: 53.90 >55% Mitral Valve MV Pk E: 0.84 MV Decel Time: 101.00 E'Lateral: 14.00 E'Medial: 13.60 E/E' Med: 6.20 E/E' Lat: 6.00 PHT: 30.00 MVA PHT: 7.33 Decel [place]: 8.28 Aortic Valve AoV Pk Ike: 0.98 AoV Mn Ike: 0.69 AoV VTI: 0.19 AoV Pk Grad: 4.00 Aov Mn Grad: 2.00 NIKKY Cont.VTI: 2.26 LVOT LVOT Pk Ike: 0.82 LVOT Mn Ike: 0.55 LVOT VTI: 0.15 LVOT Pk Grad: 3.00 LVOT Mn Grad: 1.00 LVOT Diam: 1.90 LVOT Area: 2.84 Diastolic Function MV Pk E: 0.84 E'Medial: 13.60 E/E' Med: 6.20 E' Laterial: 14.00 E/E' Lat: 6.00 Right Ventricle TAPSE (mm): 27.70 TVS' Ike: 13.40 Tricuspid Valve TR Pk Ike: 2.20 TR Pk Grad: 19.00 RA Press: 3.00 RVSP: 22.00 Great Vessels Aorta Sinus of Valsalva: 3.01 2.0-3.[address] [place]: 2.29 1.7-3.4 cm Ao Asc: 2.90 2.1-3.4 cm Updated in Other Vendor System with Status of Final Corbin Nieto MD electronically signed on 12/06/2023 3:02:25 PM with status of Final
[2023-12-06] MEDS: Nicotine 14 MG PATCH.TD24 TRANSDERMA (08:43)
[2023-12-06] MEDS: methylPREDNISolone Sod Succ 40 MG/ML VIAL IVPUSH ×2 (08:47→22:10)
--- NOTE | 2023-12-06 08:50 | PC.RT ---
pt sats 85% on 2 liters and HR 130. increased 02 at 4 liters and sts 91% and HR remains at 132. Neb tx held. Mindy, Sing aware
[2023-12-06 09:41] LABS: VBG Base Excess 10.2 mmol/L; VBG HCO3 35 mmol/L (22-26); VBG pCO2 47 mmHg; VBG pH 7.48 (7.32-7.43); VBG pO2 78 mmHg
[2023-12-06 09:42] LABS: Venous Blood Gas Refer to POC result
[2023-12-06] MEDS: dilTIAZem HCL 30 MG TABLET 15 MG PO ×2 (09:56→12:48)
--- NOTE | 2023-12-06 10:21 | MHC.IC ---
Pt has coronavirus OC43, which IS NOT Covid 19. Only standard precautions required per. CDC Appendix A.
--- NOTE | 2023-12-06 10:25 | MHC.CM.PN ---
Pt lives alone, son is in second fl apt. in same house. HCP to be completed here, and added to chart, it is important to pt that his son be able to speak with providers about pt.'s condition andn care. Pt. does not have any home health services or medical equipment. He has not seen a PCP in years, CM will submit task to get him an appt. with a new PCP in [place] per pt.'s request. Transportation home, pt. said he uses [employer]. CM to follow and assist with DC plan.
[2023-12-06] MEDS: Enoxaparin Sodium 40 MG/0.4 ML SYRINGE SUBCUT (12:02)
[2023-12-06] MEDS: cefTRIAXone sodium 1 GM in 0.9 % Sodium Chloride 50 ML IV (12:06)
[2023-12-06] MEDS: Doxycycline Hyclate 100 MG in 0.9 % Sodium Chloride 250 ML 166.67 MG IV ×2 (12:50→23:36)
[2023-12-06] MEDS: Ipratropium Bromide 0.5 MG/2.5 ML SOLUTION INHALE ×2 (12:58→15:59)
--- NOTE | 2023-12-06 15:27 | P.PNIM_ITS ---
Subjective Subjective Date of Service: 12/06/23 Interval History: sob , tachycardia Review of Systems sob somewhat improving but still feels sob with excersion has dry cough,no fever Physical Exam 2 Vital Signs: Vital Signs: Last Vital Signs Temp 98.1 F 12/06/23 07:38 Pulse 123 H 12/06/23 13:00 Resp 18 12/06/23 13:00 BP 159/91 H 12/06/23 07:38 Pulse Ox 95 12/06/23 07:38 O2 Del Method Nasal Cannula 12/06/23 07:38 O2 Flow Rate 2 12/06/23 07:38 BMI result Body Mass Index 19.3 Appearance: Alert.? Oriented X3.sob? cvs: rrr, [id number] . res: air entry diminshed ,has b/l exp wheezing abd: no rebound or guarding ,nt, bs present. ext pulses present , no cyanosis. neuro: axo3 , nonfocal. Objective Data Active Medications Acetaminophen (Acetaminophen 325 Mg Tablet) 650 mg PO Q6H PRN PRN Reason: Pain, Mild (Pain Scale 1-3) Diltiazem HCl (Diltiazem Hcl 30 Mg Tablet) 15 mg PO QID [facility]; Protocol Last Admin: 12/06/23 12:48 Dose: 15 mg Documented By: MARCE Enoxaparin Sodium (Enoxaparin Sodium 40 Mg/0.4 Ml Syringe) 40 mg SUBCUT Q24H [facility] Last Admin: 12/06/23 12:02 Dose: 40 mg Documented By: MARCE Guaifenesin/Codeine Phosphate (Guaifen/Codeine Sf 200/20/10ml 10 Ml Liquid) 5 ml PO Q4H [facility] Last Admin: 12/06/23 12:49 Dose: 5 ml Documented By: MARCE Ceftriaxone Sodium 1 gm/ (Sodium Chloride) 50 mls @ 100 mls/hr IV Q24H [facility] Last Infusion: 12/06/23 12:46 Dose: Infused Documented By: MARCE Doxycycline Hyclate 100 mg/ (Sodium Chloride) 250 mls @ 166.67 mls/hr IV Q12H [facility] Last Infusion: 12/06/23 14:31 Dose: Infused Documented By: MARCE Ipratropium [place] (Ipratropium [place] 0.5 Mg/2.5 Ml Solution) 0.5 mg INHALE RQ4H WHILE AWAKE [facility] Last Admin: 12/06/23 12:58 Dose: 0.5 mg Documented By: HITESH Methylprednisolone Sodium Succinate (Methylprednisolone Sod Succ 40 Mg/Ml Vial) 40 mg IVPUSH Q12H [facility] Last Admin: 12/06/23 08:47 Dose: 40 mg Documented By: MARCE Nicotine (Nicotine 14 Mg Patch.Td24) 14 mg TRANSDERMA DAILY [facility] Last Admin: 12/06/23 08:43 Dose: 14 mg Documented By: MARCE Ondansetron HCl (Ondansetron Hcl 4 Mg/2 Ml Vial) 4 mg IVPUSH Q8H PRN PRN Reason: Nausea and Vomiting Senna (Sennosides 8.6 Mg Tablet) 17.2 mg PO BEDTIME PRN PRN Reason: Constipation Sodium Chloride (0.9 % Sodium Chloride Flush 3 Ml Syringe) 3 ml IVFLUSH QSHIFT [facility] Last Admin: 12/05/23 21:52 Dose: 3 ml Documented By: NAIDA Labs 12/05/23 06:13 12/05/23 06:13 Labs: Laboratory Results - last 24 hr 12/06/23 09:35 Hold Purple Top SEE NOTE VBG pH 7.48 H VBG pCO2 47 VBG pO2 78 VBG HCO3 35 H VBG O2 Saturation 97.0 VBG Base Excess 10.2 Microbiology Microbiology Results: Microbiology 12/04/23 09:38 Blood Culture - Preliminary Blood - Venous No growth after 48 hours. 12/04/23 09:29 Blood Culture - Preliminary Blood - Venous No growth after 48 hours. 12/04/23 14:12 Gram Stain - Final Sputum - Expectorated Sputum Culture - Preliminary Haemophilus species Assessment and Plan (1) COPD exacerbation: Status: Acute (2) Pneumonia: Status: Acute Plan 63-year-old male with history of COPD who is a current 1/2 PPD cigarette smoker (with 50 year history) admitted for further management of COPD exaceration and bilateral pneumonia with acute hypoxemic respiratory failure. Bilateral pneumonia with COPD exacerbation and acute hypoxemic respiratory failure CTA chest negative for PE but shows multiple ill defined groundglass opacities concerning for infectious vs inflammatory etiology. recommend follow up CT 7-10 days after abx Tachypnea due to exacerbation. Reports chronic tachycardia NO sepsis. res panel positice for carreon OC 43 positive sputum culture, strep pneumo ag, legionella ag blood cultures neg@48hrs sputum culture-haemophilus species. plan: continue IV ceftriaxone and doxycycline (initiated 12/04),duonebs q4h while awake, albuterol prn,40mg IV methylprednisolone BID, symptomatic management,supplemental O2 to maintain oximetry >92%, wean as tolerated needs oupt follow up CT 1-2 weeks after antibiotics treatments. Sinus tachycardia-likely multifactorial due to anxiety, albuterol use, possible underlying CHF (euvolemic on exam- not exacerbated) hr 110-120's echo:Normal left ventricular size, thickness, and systolic function. The visually estimated ejection fraction is between 55-60%. Spectral Doppler is indicative of a normal filling pattern. Monitor, outpt follow up ,added ativan,changed nebs to ipratropium acute Lactic acidosis-likely due to hypoxia. Not severe sepsis. no further trending unless clinical deterioration. Cigarette smoker-50 pack year history cessation counseling, nicotine patch for NRT outpt follow up for lung cancer screenings DVT prophylaxis- lovenox DNR- noninvasive and invasive ventilation ok ongoing hospitlisation needfor 48-72 hrs for acute COPD exacerbation and pneumonia resulting in acute hypoxemic respiratory failure which will require IV steroids, IV abx, close monitoring, and gradual weaning of supplemental O2 Quality Stroke Does the patient have a stroke diagnosis?: No VTE Prior VTE?: No VTE Risk Level:: Medical - moderate - high VTE Device Contraindication: Treatment Not Indicated VTE Drug Contraindication: N/A - Med Ordered
--- NOTE | 2023-12-06 15:37 | P.CDIM_ITS ---
PROVIDER RESPONSE TEXT: To clarify, the appropriate diagnosis supported by the clinical indicators: Acute QUERY TEXT: PHYSICIAN'S DOCUMENTATION REQUEST Date of Query: 12/06/2023 07:51 AM EST Patient Name: Sam Cruz Admit Date: 12/04/2023 Dear Rajat Foreman, A review of the medical record indicates additional documentation may be needed. Please review below and update the documentation accordingly. Clinical Indicators: Progress note: Plan - Lactic acidosis - likely due to hypoxia, not severe sepsis. LA 2.6 Clarify which of the following accurately represents the acuity of the Lactic acidosis: Possible options might include: Acute Acute on chronic Other (explain) Clinically unable to determine (explain) Thank you, Jesenia García, CCS, CDIS Use of terms such as suspected, likely, concern for, or probable (associated with a specific diagnosi s that is being evaluated, monitored, or treated as if it exists) are acceptable and can be coded in the inpatient se tting, when documented at the time of discharge. Please use your independent medical judgment in providing your response. THIS QUERY IS PART OF THE PERMANENT MEDICAL RECORD
--- NOTE | 2023-12-06 15:42 | P.CDIM_ITS ---
PROVIDER RESPONSE TEXT: To clarify, the appropriate diagnosis supported by the clinical indicators: Mild intermittent: mild intermittent asthma QUERY TEXT: PHYSICIAN'S DOCUMENTATION REQUEST Date of Query: 12/06/2023 09:20 AM EST Patient Name: Sam Cruz Admit Date: 12/04/2023 Dear Rajat Foreman, A review of the medical record indicates additional documentation may be needed. Please review below and update the documentation accordingly. The diagnosis of asthma was documented in the ED dated 12/04 - History of Asthma complains of cough, nonproductive, chest pain, daily smoker, sob. PMH Asthma lactic acidosis likely secondary to multiple nebulizer treatments as well as IV Solumedrol. DDX - COPD exacerbation, asthma exacerbation, viral syndrome Based on the above, please clarify in the Progress Notes further specificity regarding the type and a cuity of the asthma: Mild intermittent Please specify if with or without acute exacerbation or status asthmaticus Mild persistent Please specify if with or without acute exacerbation or status asthmaticus Moderate persistent Please specify if with or without acute exacerbation or status asthmaticus Severe persistent Please specify if with or without acute exacerbation or status asthmaticus Chronic obstructive asthma and indicate if with acute lower respiratory infection Please specify if with or without acute exacerbation or status asthmaticus Asthma with underlying COPD and indicate if with acute lower respiratory infection Please specify if with or without acute exacerbation or status asthmaticus Other (explain) Clinically unable to determine (explain) Thank you, Jesenia García, CCS, CDIS Use of terms such as suspected, likely, concern for, or probable (associated with a specific diagnosi s that is being evaluated, monitored, or treated as if it exists) are acceptable and can be coded in the inpatient se tting, when documented at the time of discharge. Please use your independent medical judgment in providing your response. THIS QUERY IS PART OF THE PERMANENT MEDICAL RECORD
[2023-12-06] MEDS: LORazepam 0.5 MG TABLET PO (16:23)
--- NOTE | 2023-12-06 16:28 | W.PM.IDCN ---
History of Present Illness Data of Consult Service Date: 12/06/23 Requesting physician: Rajat Foreman Primary Care Provider: Aramis Herman DNP HPI Reason for consult: hypoxic respiratory failure He presents with cough,nonproductive for a week. He has no fever at this time. He feels shortness of breath but is 95% on NC. Has coranavirus,not COVID,respiratory panel There are patchy infiltrates on CXR PMFSH Past Medical History Medical History Cigarette smoker COPD (chronic obstructive pulmonary disease) Family History Family history: reviewed and not pertinent Social History Social History Housing: House Patient Tobacco Use Status: Current everyday Tobacco user Tobacco use type: Cigarette Cigarette Packs Per Day: 0.5 Cigarettes Per Day: 10.0 e-Cigarette/Vaping Use: Currently Using service: No Meds Allergies Allergy/AdvReac Type Severity Reaction Status Date / Time No Known Allergies Allergy Verified 12/04/23 05:53 [No Known Allergies*] Active Medications: Current Medications Acetaminophen (Acetaminophen 325 Mg Tablet) 650 mg PO Q6H PRN PRN Reason: Pain, Mild (Pain Scale 1-3) Enoxaparin Sodium (Enoxaparin Sodium 40 Mg/0.4 Ml Syringe) 40 mg SUBCUT Q24H [facility] Last Admin: 12/06/23 12:02 Dose: 40 mg Guaifenesin/Codeine Phosphate (Guaifen/Codeine Sf 200/20/10ml 10 Ml Liquid) 5 ml PO Q4H [facility] Last Admin: 12/06/23 16:23 Dose: 5 ml Ceftriaxone Sodium 1 gm/ (Sodium Chloride) 50 mls @ 100 mls/hr IV Q24H [facility] Last Infusion: 12/06/23 12:46 Dose: Infused Doxycycline Hyclate 100 mg/ (Sodium Chloride) 250 mls @ 166.67 mls/hr IV Q12H [facility] Last Infusion: 12/06/23 14:31 Dose: Infused Ipratropium [place] (Ipratropium [place] 0.5 Mg/2.5 Ml Solution) 0.5 mg INHALE RQ4H WHILE AWAKE [facility] Last Admin: 12/06/23 15:59 Dose: 0.5 mg Methylprednisolone Sodium Succinate (Methylprednisolone Sod Succ 40 Mg/Ml Vial) 40 mg IVPUSH Q12H [facility] Last Admin: 12/06/23 08:47 Dose: 40 mg Nicotine (Nicotine 14 Mg Patch.Td24) 14 mg TRANSDERMA DAILY [facility] Last Admin: 12/06/23 08:43 Dose: 14 mg Ondansetron HCl (Ondansetron Hcl 4 Mg/2 Ml Vial) 4 mg IVPUSH Q8H PRN PRN Reason: Nausea and Vomiting Senna (Sennosides 8.6 Mg Tablet) 17.2 mg PO BEDTIME PRN PRN Reason: Constipation Sodium Chloride (0.9 % Sodium Chloride Flush 3 Ml Syringe) 3 ml IVFLUSH QSHIFT [facility] Last Admin: 12/06/23 16:23 Dose: Not Given Home Medications Medication Instructions Recorded Confirmed Last Taken Type No Known Home Meds 12/04/23 12/04/23 Unknown History Physical Exam Vital Signs: Vital Signs: Last Vital Signs Temp 98.2 F 12/06/23 15:57 Pulse 107 H 12/06/23 16:00 Resp 20 12/06/23 16:00 BP 142/78 H 12/06/23 15:57 Pulse Ox 94 12/06/23 15:57 O2 Del Method Nasal Cannula 12/06/23 15:57 O2 Flow Rate 2 12/06/23 15:57 BMI result Body Mass Index 19.3 Resp: Effort & Inspection: audible wheezes Results Labs 12/05/23 06:13 12/05/23 06:13 Microbiology Microbiology Results: Microbiology 12/04/23 09:38 Blood - Venous Blood Culture - Preliminary No growth after 48 hours. 12/04/23 09:29 Blood - Venous Blood Culture - Preliminary No growth after 48 hours. 12/04/23 14:12 Sputum - Expectorated Gram Stain - Final 12/04/23 14:12 Sputum - Expectorated Sputum Culture - Preliminary Haemophilus species Assessment and Plan (1) Pneumonia: Status: Acute May be viral or atypical pneumonia with common cold virus. No lobar infiltrate seen No COVID COPD exacerbation from cold (2) COPD exacerbation: Status: Acute Plan Continue Ceftriaxone and Doxycycline for now. Oxygen if needed. Would check procalcitonin and if unremarkable would stop IV antibiotics and po Doxycycline for a week for COPD exacerbation. Check urine Legionella and MRSA nasal swab if not done.
[2023-12-06 17:42] LABS: Procalcitonin 0.07 ng/mL
[2023-12-06] MEDS: 0.9 % Sodium Chloride Flush 3 ML SYRINGE IVFLUSH (22:10)
[2023-12-07] VITALS (7 sets, daily range): BP systolic 138–165; BP diastolic 78–101; PULSE 89–140; RESP 18–20; TEMP 36.4–36.6; O2SAT 88–97
[2023-12-07] MEDS: guaiFEN/Codeine SF 200/20/10ML 10 ML LIQUID 5 ML PO ×4 (02:05→10:59)
[2023-12-07] MEDS: methylPREDNISolone Sod Succ 40 MG/ML VIAL IVPUSH (08:03)
[2023-12-07] MEDS: 0.9 % Sodium Chloride Flush 3 ML SYRINGE IVFLUSH ×2 (08:04→11:03)
[2023-12-07] MEDS: Nicotine 14 MG PATCH.TD24 TRANSDERMA (08:04)
[2023-12-07] MEDS: Ipratropium Bromide 0.5 MG/2.5 ML SOLUTION INHALE ×2 (08:08→11:53)
--- NOTE | 2023-12-07 10:21 | MHC.CLN ---
F/U DIET=2 G SODIUM. PATIENT IS UNDER WEIGHT FOR HEIGHT, 82% IBW. APPEARS TO BE EATING WELL. NO RECENT WEIGHT CHANGE REPORTED. CONTINUE TO MONITOR PO INTAKE.
[2023-12-07] MEDS: Doxycycline Hyclate 100 MG in 0.9 % Sodium Chloride 250 ML 166.67 MG IV (10:55)
[2023-12-07] MEDS: cefTRIAXone sodium 1 GM in 0.9 % Sodium Chloride 50 ML IV (10:55)
[2023-12-07] MEDS: Enoxaparin Sodium 40 MG/0.4 ML SYRINGE SUBCUT (10:59)
[2023-12-07] MEDS: carvediloL 3.125 MG TABLET PO (11:05)
[2023-12-07 12:22] LABS: MRSA Nasal PCR NEGATIVE (Negative); SA Nasal PCR NEGATIVE (Negative)
--- NOTE | 2023-12-07 12:23 | P.DS_ITS ---
DS: Providers Provider Date of Service: 12/07/23 Date of admission: 12/04/23 11:39 Date of discharge: 12/07/23 Primary care physician: Aramis Herman DNP Consults: 12/05/23 16:19 Consult to Infectious Diseases Routine Consulting Provider: [facility] Infectious Disease Reason for consultation: acute hypoxemic resp failure ,covid OC43 Positive Has provider been notified: No Attending physician on discharge: Rajat Foreman Discharging clinician: Rajat Foreman DS: Diagnosis Discharge Diagnosis (1) Pneumonia: Status: Acute (2) COPD exacerbation: Status: Acute DS: Summary Hospital Course Hospital Course: 63-year-old male with history of COPD who is a current 1/2 PPD cigarette smoker (with 50 year history) presents to the ED earlier today for evaluation of productive could with clear-yellow sputum and dyspnea ongoing for 3 weeks. States he has a smoker's cough at baseline but this is different. Reports dyspnea both with exertion and at rest. There is pleuritic chest pain. Reports coworkers have been sick but no sick contacts at home. No fevers, chills, sore throat, congestion, abd pain, n/v/d urinary symptoms, lightheadedness, palpitations, chest pressure. Has been cutting back on cigarettes for several months to 1/2 ppd from 1ppd. Denies any night sweats or unintentional weight loss. Reports his tachycardia is chronic. On arrival, pt tachycardic to 130, VS otherwise stable, afebrile. Mild leukocytosis 11.5. Renal fx normal, mild hyponatremia 131 and chloride 93, lytes otherwise WNL. lactic acid 2.6. Trop below detectable limits. Negative COVID and flu. DDimer 330. Chest CTA negative for PE, but shows multiple ill-defined nodular densities in both upper and lower lobes. In ED, given 125mg IV solumderol, duoneb, IV NS. Hospital course: Patient came to the hospital because COPD exacerbation, pneumonia , res panel positice for carreon OC 43 positive (possible viral uri), sputum culture and blood culture also sent,no sepsis:Patient started on IV ceftriaxone and doxycycline, nebs, steroids, supplemental oxygen: Patient seems to be feeling significantly better. Also in addition echo was also done:seems fine ef 55-60%. Chest tube is in with CTA showed:CTA chest negative for PE but shows multiple ill defined groundglass opacities concerning for infectious vs inflammatory etiology. Patient's sputum culture growing Haemophilus influenza: Patient will be going home with p.o. Ceftin 500 mg p.o. b.i.d. for 7 days since sputum culture growing Haemophilus influenzae.Patient needs to repeat chest CT in 1-2 week after completing antibiotic course to see resolution of pneumonia. Patient will need home oxygen evaluation-which is pending. unclear if patient has asthma component ,may need outpatient pulmonary function testing. Tachycardia probably related to shortness of breath and nebs-seems to be improved significantly, in addition patient says that he has some tachycardia as baseline, echo and CTA negative as above. possible htn : added coreg 3.125 mg po bid, monitor BP out patiently with PCP and further management as per PCP. plan: Complete p.o. Ceftin 500 mg p.o. b.i.d. for 7 days . coreg 3.125 mg po bid, monitor BP out patiently with PCP and further management as per PCP. Complete prednisone 40 mg daily for 2 days, also patient qualified for 2 L home oxygen with exertion. Patient needs to repeat chest CT in 1-2 week after completing antibiotic course to see resolution of pneumonia. Above management discussed with the patient in detail length, he understand and in agreement with the plan, time spent 50 minute. Time Attestation Discharge coordination time: Greater than 30 minutes Quality: Safe Use of Opioids Does Pt have an Active Cancer Diagnosis on the Problem List?: No Quality: Stroke Does the patient have a stroke diagnosis?: No Physical Exam Vital Signs: Vital Signs: Last Vital Signs Temp 97.6 F 12/07/23 12:17 Pulse 104 H 12/07/23 12:17 Resp 20 12/07/23 12:17 BP 140/86 H 12/07/23 12:17 Pulse Ox 90 L 12/07/23 12:17 O2 Del Method Room Air 12/07/23 12:17 O2 Flow Rate 2 12/07/23 08:00 BMI result Body Mass Index 19.3 Appearance: Alert.? Oriented X3.sob? cvs: rrr, [id number] . res: air entry fair , no rales or wheezing abd: no rebound or guarding ,nt, bs present. ext pulses present , no cyanosis. neuro: axo3 , nonfocal. DS: Data Data Completed and Pending Labs on day of discharge: Laboratory Results - last 24 hr 12/06/23 12/06/23 16:53 17:57 Procalcitonin 0.07 Nasal Screen MRSA (PCR) NEGATIVE Nasal S. aureus Screen NEGATIVE Nasal MRSA/S.aureus Interp SEE NOTE Preliminary micro results at discharge 12/04/23 09:38 Blood Culture - Preliminary Blood - Venous No growth after 48 hours. 12/04/23 09:29 Blood Culture - Preliminary Blood - Venous No growth after 48 hours. Imaging Chest x-ray: Radiologist's impression: ITS Impressions Chest X-Ray 12/04/23 06:08 IMPRESSION: Hyperinflated lung araujo. No definitive focal consolidation or evidence for significant pleural effusions. Chest CTA 12/04/23 09:01 IMPRESSION: No evidence of PE. No evidence aortic aneurysm or dissection. Multiple ill-defined groundglass nodular densities in both upper and lower lobes. Question inflammatory or infectious etiology. Recommend follow-up chest x-ray in 7-10 days following course of antibiotics. VTE: negative Discharge Plan Discharge Anticipated Discharge Date/Time: 12/07/23 12:16 Patient Disposition: Home, Self-Care Discharge Diagnosis: copd excerebation,pneumonia ,htn Referrals: Aramis Herman, APRIL [Primary Care Provider] - 1 Week Discharge Medications: New sennosides [Senna Lax] 8.6 mg Tablet 17.2 mg PO BEDTIME PRN (Reason: Constipation) Qty: 30 0RF carvedilol 3.125 mg Tablet 3.125 mg PO BID Qty: 120 0RF Protocol: Hold for SBP/HR < HOLD for SBP < : 90 HOLD for HR < : 60 cefuroxime axetil 500 mg tablet 500 mg PO BID Qty: 14 0RF albuterol sulfate [Ventolin HFA] 90 mcg/actuation Hfa Aerosol Inhaler 1 puff inhalation RQ4H PRN (Reason: Sob) Qty: 1 0RF fluticasone furoate-vilanterol [Breo Ellipta] 200-25 mcg/dose Blister With Device 1 inh inhalation RDAILY Qty: 1 0RF prednisone 20 mg tablet 40 mg PO DAILY Qty: 4 0RF Discharge Orders: Discharge Order (Routine); Ordered 12/07/23 Ordered By: Rajat Foreman Diet: Advance to usual diet Activity on Discharge: As tolerated Stand Alone Forms: Patient Portal Discharge page Care Plan Goals: Patient came to the hospital because COPD exacerbation, pneumonia , res panel positice for carreon OC 43 positive (possible viral uri), sputum culture and blood culture also sent,no sepsis:Patient started on IV ceftriaxone and doxycycline, nebs, steroids, supplemental oxygen: Patient seems to be feeling significantly better. Also in addition echo was also done:seems fine ef 55-60%. Chest tube is in with CTA showed:CTA chest negative for PE but shows multiple ill defined groundglass opacities concerning for infectious vs inflammatory etiology. Patient's sputum culture growing Haemophilus influenza: Patient will be going home with p.o. Ceftin 500 mg p.o. b.i.d. for 7 days since sputum culture growing Haemophilus influenzae.Patient needs to repeat chest CT in 1-2 week after completing antibiotic course to see resolution of pneumonia. Tachycardia probably related to shortness of breath and nebs-seems to be improved significantly, in addition patient says that he has some tachycardia as baseline, echo and CTA negative as above. Patient home oxygen evaluation done: Patient will benefit from home oxygen with exertion qualified for 2 L. unclear if patient has asthma component ,may need outpatient pulmonary function testing. possible htn : added coreg 3.125 mg po bid, monitor BP out patiently with PCP and further management as per PCP. Above management discussed with the patient in detail length, he understand and in agreement with the plan. Health Concerns: Complete p.o. Ceftin 500 mg p.o. b.i.d. for 7 days . coreg 3.125 mg po bid, monitor BP out patiently with PCP and further management as per PCP. Patient needs to repeat chest CT in 1-2 week after completing antibiotic course to see resolution of pneumonia. Plan of Treatment: As above. Assessment: As above. Patient Instructions: Pneumonia (DC)
[2023-12-07] MEDS: predniSONE 20 MG TABLET 40 MG PO (13:18)
--- NOTE | 2023-12-07 13:52 | MHC.CM.PN ---
Pt has been medically cleared for DC, he will go home via shuttle. He will have home O2, and he will arrange to have a new PCP, info was given to him to follow up.
[2023-12-07 22:28] LABS: Legionella Ag Urine Not Detected (Not Detected); Strep Pneumo Ag urine Not Detected (Not Detected)
[2023-12-11 02:58] LABS: Legionella Ag Urine Not Detected (Not Detected)
== END 2023-12-07 14:47 | disposition home or self-care (01) | DRG 139 ==
LOC: HO.ED 09:59 → HO.EDOVER 11:59 → HO.IMC 12-05 19:28
PROVIDERS: Emergency Medicine; Internal Medicine; Physician Assistant Medical; Admitting Provider Physician Assistant; Emergency Provider Emergency Medicine; PCP Nurse Practitioner Family; Visit Provider Internal Medicine
DX: J18.9 Pneumonia, unspecified organism (principal); J96.01 Acute respiratory failure with hypoxia; E87.21 Acute metabolic acidosis; J44.0 Chronic obstructive pulmonary disease with (acute) lower respiratory infection; J45.21 Mild intermittent asthma with (acute) exacerbation; J44.1 Chronic obstructive pulmonary disease with (acute) exacerbation; F41.9 Anxiety disorder, unspecified; I10 Essential (primary) hypertension; F17.210 Nicotine dependence, cigarettes, uncomplicated; Z71.6 Tobacco abuse counseling; B96.3 Hemophilus influenzae [H. influenzae] as the cause of diseases classified elsewhere; B97.29 Other coronavirus as the cause of diseases classified elsewhere; Z20.822 Contact with and (suspected) exposure to COVID-19; Z79.899 Other long term (current) drug therapy
CPT/HCPCS: 36415; 71045; 71275; 80048; 80053; 82803; 83605; 84145; 84484; 85007; 85025; 85027; 85379; 87040; 87070; 87077; 87185; 87205; 87449; 87502; 87633; 87635; 87640; 87641; 87899; 93005; 93306; 94640; 99285; J0696; J1650; J2920; J2930; Q9957; Q9967

== ENCOUNTER → 2023-12-04 05:59 | Outpatient (BNV) | payer OTHER, SELFPAY | PROVIDERS: Emergency Provider Emergency Medicine; PCP Nurse Practitioner Family; Visit Provider Internal Medicine Cardiovascular Disease | DX: R06.02 Shortness of breath (principal) | CPT/HCPCS: 93010 ==

== ENCOUNTER 2023-12-04 11:39 | Outpatient (BNV) | payer OTHER, SELFPAY | END 2023-12-06 07:00 | PROVIDERS: Admitting Provider Physician Assistant; Emergency Provider Emergency Medicine; PCP Nurse Practitioner Family; Visit Provider Internal Medicine Cardiovascular Disease | DX: R00.0 Tachycardia, unspecified (principal) | CPT/HCPCS: 93306 ==

== ENCOUNTER → 2023-12-04 11:39 | Outpatient (BNV) | payer OTHER, SELFPAY | PROVIDERS: Admitting Provider Physician Assistant; Emergency Provider Emergency Medicine; PCP Nurse Practitioner Family; Visit Provider Internal Medicine | DX: J18.9 Pneumonia, unspecified organism (principal); J44.1 Chronic obstructive pulmonary disease with (acute) exacerbation | CPT/HCPCS: 99222 ==

== ENCOUNTER → 2023-12-04 11:39 | Outpatient (BNV) | payer OTHER, SELFPAY | PROVIDERS: Admitting Provider Physician Assistant; Emergency Provider Emergency Medicine; PCP Nurse Practitioner Family; Visit Provider Physician Assistant | DX: J96.01 Acute respiratory failure with hypoxia (principal); J44.1 Chronic obstructive pulmonary disease with (acute) exacerbation; J18.9 Pneumonia, unspecified organism; R00.0 Tachycardia, unspecified | CPT/HCPCS: 99223; 99232; 99238 ==

== ENCOUNTER 2023-12-24 15:39 | Outpatient (AMB) | payer OTHER, SELFPAY ==
--- NOTE | 2023-12-24 15:33 | A.OFFVIS_ITS ---
Intake Vital Signs 12/24/23 15:40 Height 5 ft 10 in Weight 140 lb BMI 20.1 Pulse 83 Pulse Source Pulse Oximeter Temp 98.4 F Temp Source Oral Pulse Oximetry (%) 99 Intake Visit Reasons: ref list cough sob Allergies No Known Allergies [No Known Allergies*] Allergy (Verified 12/24/23 15:41) HPI ref list cough sob HPI Details I had seen him in the hospital. He had pneumonia ,diffuse infiltrates and coronavirus ,not COVID. His procalcitonin was .07 and urine Legionella and strep pneumonia antigens were negative. He had no MRSA. Since discharge he feels well and no shortness of breath. [facility] Medical History Cigarette smoker COPD (chronic obstructive pulmonary disease) Social History Housing: House Patient Tobacco Use Status: Current everyday Tobacco user Tobacco use type: Cigarette Cigarette Packs Per Day: 0.5 Cigarettes Per Day: 10.0 e-Cigarette/Vaping Use: Currently Using service: No Review of Systems Const All systems reviewed & are unremarkable except as noted in HPI and below Physical Exam Vital Signs: Last Vital Signs Temp 98.4 F 12/24/23 15:40 Pulse 83 12/24/23 15:40 Pulse Ox 99 12/24/23 15:40 BMI result Body Mass Index 20.1 Const General: cooperative Orientation/consciousness: patient oriented x3 HEENT Head: Yes normal to inspection Mouth: Normal oral and palatal mucosa present Eyes General: appearance normal, both eyes and all related structures Pupils: Equal, round and reactive pupils present Resp Effort & Inspection: normal respiratory effort Cardio Rate: regular rate Rhythm: regular rhythm GI Palpation (GI): Soft to palpation and nontender General: Yes no CVA tenderness Back/Spine/Pelvis Back: no CVA tenderness Skin General skin exam: no rashes or lesions noted Neuro General: patient oriented x3 Cranial nerves: Yes CN's II-XII intact bilaterally and Yes Equal, round and reactive pupils present Extrem General: Yes normal to inspection Psych Appearance: grossly normal Assessment & Plan Assessment & Plan (1) Pneumonia: Comment: He feels well but CXR recommended on discharge. Code(s): J18.9 - Pneumonia, unspecified organism Plan: CXR followup. Call us next week for results,see prn need. (2) COPD exacerbation: Code(s): J44.1 - Chronic obstructive pulmonary disease with (acute) exacerbation Plan: na Orders: Orders XR chest 2V Today J18.9 - Pneumonia, unspecified organism Coding Level of Care Code Est Pt Level 3 (51319) Diagnoses Pneumonia J18.9 COPD exacerbation J44.1
[2023-12-24 15:40] VITALS: PULSE 83; TEMP 36.9; O2SAT 99; BMI 20.1
== END 2023-12-24 16:27 | disposition home or self-care (01) ==
LOC: HO.HID 15:40
PROVIDERS: PCP Nurse Practitioner Family; Visit Provider Internal Medicine
DX: J18.9 Pneumonia, unspecified organism (principal); J44.1 Chronic obstructive pulmonary disease with (acute) exacerbation
CPT/HCPCS: 99213

== ENCOUNTER → 2023-12-24 15:39 | Outpatient (BNVA) | payer OTHER, SELFPAY | PROVIDERS: PCP Nurse Practitioner Family; Visit Provider Internal Medicine ==